=== PATIENT | male | born 1985 | race Caucasian/White ===

== ENCOUNTER 2023-02-22 08:37 | Emergency (ER) | payer OTHER ==
[~2023-02-22] VITALS: Ht 177.8 cm; Wt 68.0 kg
[~2023-02-22 08:37] MED LIST: ALBU90OI INH; ALBU90OI61 INH; AMOX500 PO; ATOM60 PO; AZIT250 PO; CEPH500 PO; CODGUAEL PO; FLUO10; HYDACE5 PO; HYDGUAL120 PO; IBUP600 PO; IBUP800 PO; LORA10ER PO; NAPR500 PO; PENVK500 PO; PRED10 PO; PRED20 PO; PROM25 PO; RXCEPH500 PO; SULTRIDS PO; TRAM50 PO
[2023-02-22 09:06] VITALS: BP 151/127
[2023-02-22] MEDS ORDERED: Ultram50 MG PO (09:13)
[2023-02-22] MEDS ORDERED: CYCL10 PO (09:13)
== END 2023-02-22 10:10 | disposition home or self-care (01) ==
LOC: ER 08:37
DX: M54.50 Low back pain, unspecified (principal); Z79.899 Other long term (current) drug therapy
CPT/HCPCS: 96372; 99282-25; J1885